=== PATIENT | male | born 1985 | race Caucasian/White ===

== ENCOUNTER 2016-11-28 15:08 | Emergency (ER) | payer MEDICAID ==
[~2016-11-28] VITALS: Wt 78.0 kg
[2016-11-28] MEDS ORDERED: LIDOCAINE/MYLANTA 40 ML BTL PO STA (15:43)
[2016-11-28] MEDS ORDERED: FAMOTIDINE 20 MG TAB PO STA (15:43)
[2016-11-28] MEDS ORDERED: ACETAMINOPHEN 500 MG TAB PO STA (15:43)
[2016-11-28 15:57] LABS: ADD SCAN DIFF NO
[2016-11-28 15:59] LABS: BASOPHIL # 0.1 10^3/ul (0.0-0.1); BASOPHILS % 0.7 % (0.0-2.0); EOSINOPHILS # 0.1 10^3/ul (0.0-0.5); EOSINOPHILS % 1.5 % (0.0-7.0); HEMATOCRIT 43.9 % (42.0-52.0); HEMOGLOBIN 15.3 g/dl (14.0-18.0); LYMPHOCYTES # 2.4 10^3/ul (0.8-2.9); LYMPHOCYTES % 33.5 % (15.0-51.0); MEAN CORPUSCULAR HEMOGLOBIN 31.3 pg (29.0-33.0); MEAN CORPUSCULAR HGB CONC 34.9 g/dl (32.0-37.0); MEAN CORPUSCULAR VOLUME 89.8 fl (82.0-101.0); MEAN PLATELET VOLUME 10.6 fl (7.4-10.4); MONOCYTE # 0.6 10^3/ul (0.3-0.9); MONOCYTES % 7.8 % (0.0-11.0); NEUTROPHILS % 56.2 % (39.0-77.0); PLATELET COUNT 199 10^3/UL (140-415); RED BLOOD COUNT 4.89 10^6/ul (4.70-6.10); RED CELL DISTRIBUTION WIDTH 11.5 % (11.5-14.5); WHITE BLOOD COUNT 7.2 10^3/ul (4.8-10.8)
[2016-11-28 16:00] LABS: ADD UMIC NO; UR ASCORBIC ACID 40 mg/dL (NEGATIVE); UR BILIRUBIN (Dip) NEGATIVE (NEGATIVE); UR BLOOD (Dip) NEGATIVE (NEGATIVE); UR CLARITY CLEAR (CLEAR); UR COLOR YELLOW (YELLOW); UR GLUCOSE (Dip) NEGATIVE (NEGATIVE); UR KETONES (Dip) NEGATIVE (NEGATIVE); UR LEUKOCYTE ESTERASE (Dip) NEGATIVE Leu/ul (NEGATIVE); UR NITRITE (Dip) NEGATIVE (NEGATIVE); UR SPECIFIC GRAVITY (Dip) 1.025 (1.003-1.030); UR TOTAL PROTEIN (Dip) NEGATIVE (NEGATIVE); UR UROBILINOGEN (Dip) NEGATIVE (NEGATIVE)
[2016-11-28 16:21] LABS: ALBUMIN 4.9 g/dl (3.3-4.9); ALBUMIN/GLOBULIN RATIO 1.58; BILIRUBIN,INDIRECT 0.1 mg/dl (0-1.1); BILIRUBIN,TOTAL 0.1 mg/dl (0.2-1.3); CALCIUM 9.7 mg/dl (8.4-10.2); CREATININE 0.94 mg/dl (0.61-1.24); POTASSIUM 3.9 mmol/L (3.5-5.1)
--- NOTE | 2016-11-28 16:42 | ERD ---
ER Documentation Chief Complaint Date/Time DATE: 11/28/16 TIME: 16:41 Chief Complaint ABD PAIN AND HEARTBURN X 3 DAYS HPI This 31-year-old male presents with epigastric pain and burning sensation for last 3 days. Denies nausea vomiting, fevers, urinary complaints. Denies right- sided or lower abdominal pain. His previous history of similar episodes but those resolved without treatment. ROS All systems reviewed and are negative except as per history of present illness. Allergies Allergies: Coded Allergies: No Known Allergy (Unverified , 11/28/16) PMhx/Soc Medical and Surgical Hx: pt denies Medical Hx, pt denies Surgical Hx Hx Alcohol Use: Yes (QUIT 3 YEARS AGO) Hx Substance Use: No Hx Tobacco Use: No Smoking Status: Never smoker Physical Exam Vitals Vital Signs Date Time Temp Pulse Resp B/P Pulse Ox O2 Delivery O2 Flow Rate FiO2 11/28/16 15:14 98.1 101 18 145/90 99 Physical Exam Const: [], [id number]. Head: Atraumatic Eyes: Normal Conjunctiva ENT: Normal External Ears, Nose and Mouth. Neck: Full range of motion..~ No meningismus. Resp: Clear to auscultation bilaterally Cardio: Regular rate and rhythm, no murmurs Abd: Soft, mild tenderness in left epigastric area. No tenderness at McBurney's point no Coyle sign. R, non distended. Normal bowel sounds Skin: No petechiae or rashes Back: No midline or flank tenderness Ext: No cyanosis, or edema Neur: Awake and alert Psych: Normal Mood and Affect Result Diagram: 11/28/16 1550 11/28/16 1550 Results 24 hrs Laboratory Tests Test 11/28/16 15:50 White Blood Count 7.210^3/ul Red Blood Count 4.8910^6/ul Hemoglobin 15.3g/dl Hematocrit 43.9% Mean Corpuscular Volume 89.8fl Mean Corpuscular Hemoglobin 31.3pg Mean Corpuscular Hemoglobin Concent 34.9g/dl Red Cell Distribution Width 11.5% Platelet Count 69722^3/UL Mean Platelet Volume 10.6fl Neutrophils % 56.2% Lymphocytes % 33.5% Monocytes % 7.8% Eosinophils % 1.5% Basophils % 0.7% Nucleated Red Blood Cells % 0.0/100WBC Neutrophils # 4.010^3/ul Lymphocytes # 2.410^3/ul Monocytes # 0.610^3/ul Eosinophils # 0.110^3/ul Basophils # 0.110^3/ul Nucleated Red Blood Cells # 0.010^3/ul Urine Color YELLOW Urine Clarity CLEAR Urine pH 5.0 Urine Specific [place] 1.025 Urine Ketones NEGATIVEmg/dL Urine Nitrite NEGATIVEmg/dL Urine Bilirubin NEGATIVEmg/dL Urine Urobilinogen NEGATIVEmg/dL Urine Leukocyte Esterase NEGATIVELeu/ul Urine Hemoglobin NEGATIVEmg/dL Urine Glucose NEGATIVEmg/dL Urine Total Protein NEGATIVEmg/dl Sodium Level 144mmol/L Potassium Level 3.9mmol/L Chloride Level 98mmol/L Carbon Dioxide Level 30mmol/L Anion Gap 20 Blood Urea Nitrogen 12mg/dl Creatinine 0.94mg/dl Glucose Level 132mg/dl Calcium Level 9.7mg/dl Total Bilirubin 0.1mg/dl Direct Bilirubin 0.00mg/dl Indirect Bilirubin 0.1mg/dl Aspartate Amino Transf (AST/SGOT) 31IU/L Alanine Aminotransferase (ALT/SGPT) 36IU/L Alkaline Phosphatase 90IU/L Total Protein 8.0g/dl Albumin 4.9g/dl Globulin 3.10g/dl Albumin/Globulin Ratio 1.58 Lipase 143U/L Current Medications Medications (Trade) Dose Ordered Sig/Tiffany Route PRN Reason Start Time Stop Time Status Last Admin Dose Admin Famotidine (Pepcid) 20 mg ONCE STAT PO 11/28/16 15:43 11/28/16 15:46 DC 11/28/16 16:00 Miscellaneous Medication (Gi Cocktail (2)) 40 ml ONCE STAT PO 11/28/16 15:43 11/28/16 15:46 DC 11/28/16 16:00 Acetaminophen (Tylenol Tab) 500 mg ONCE STAT PO 11/28/16 15:43 11/28/16 15:46 DC 11/28/16 16:00 Procedures/MDM Patient presents with abdominal pain of uncertain etiology in the epigastric area. Patient was given Pepcid 20 mg, GI cocktail and Tylenol by mouth. CBC and CMP and urine are normal. Patient had a benign abdomen on serial exam. Patient presents with signs and symptoms of likely gastritis without current signs or symptoms of appendicitis,, acute abdomen, hepatobiliary disease, genitourinary etiology. We treated with Prilosec and Tylenol and observation at home. The patient was stable with no new complaints during the ER course. Clinically, there is no current evidence to suggest meningitis, sepsis, acute abdomen, pneumonia, acute coronary syndrome, pulmonary embolism, or any other emergent condition appearing to require further evaluation or hospitalization. The patient should certainly return for any new or worsening symptoms per the aftercare instructions. They should otherwise follow-up with her primary care doctor for reevaluation this week. ANTHONY CHICAS MD Nov 28, 2016 16:42
[2016-11-28] MEDS ORDERED: OMEP20CA16 PO (17:34)
[2016-11-28] MEDS ORDERED: ACET500C5 PO (17:34)
== END 2016-11-28 17:47 | disposition home or self-care (01) ==
LOC: FTE 15:08
DX: R10.13 Epigastric pain (principal)
CPT/HCPCS: 36415; 80053; 81003; 83690; 85025; Z7502; Z7610; 99283

== ENCOUNTER 2018-01-18 15:51 | Emergency (ER) | END 2018-01-18 16:53 | disposition home or self-care (01) ==